=== PATIENT | male | born 1945 ===

== ENCOUNTER 2017-05-02 13:20 | Emergency (ER) | payer SELFPAY ==
[2017-05-02] MEDS ORDERED: Absorbable Gelatin Sponge Size 12-7 TOP STA (13:56)
[2017-05-02 13:57] VITALS: BP 167/76; PULSE 99; RESP 18; TEMP 97.8; O2SAT 99
[2017-05-02] MEDS ORDERED: Absorbable Gelatin Sponge Size 12-7 ONE (14:00)
--- NOTE | 2017-05-02 14:28 | C.PDOC ---
History Of Present Illness 71 y/o male presents to ED with persistent bleeding from right thumb. Pt was traveling from [facility] yesterday and took xeralto at 1300. Today he accidentally cut his right thumb on edge of a metal bed frame and has had persistent bleeding and pulsating pain. Tetanus not UTD. Denies chest pain, SOB, dizziness or any other complaints. Time Seen by Provider: 05/02/17 13:48 Chief Complaint (Nursing): Abnormal Skin Integrity History Per: Patient History/Exam Limitations: no limitations Onset/Duration Of Symptoms: Hrs Current Symptoms Are (Timing): Still Present Quality Of Symptoms: Painful Severity: Mild Recent travel outside of the [place]: No Past Medical History Reviewed: Historical Data, Nursing Documentation, Vital Signs Vital Signs: Last Vital Signs Temp 97.8 F 05/02/17 13:20 Pulse 99 H 05/02/17 13:20 Resp 18 05/02/17 13:20 BP 167/76 H 05/02/17 13:20 Pulse Ox 99 05/02/17 15:01 - Medical History PMH: HTN Surgical History: No Surg Hx Family History: States: Unknown Family Hx - Social History Hx Alcohol Use: No Hx Substance Use: No - Immunization History Hx Tetanus Toxoid Vaccination: No Hx Influenza Vaccination: No Hx Pneumococcal Vaccination: No Review Of Systems Cardiovascular: Negative for: Chest Pain Respiratory: Negative for: Shortness of Breath Skin: Positive for: Other (right thumb laceration) Neurological: Negative for: Dizziness Physical Exam - Physical Exam Appears: Non-toxic, No Acute Distress Skin: Warm, Dry, No Rash, Other (0.5 cm skin avulsion to right thumb finger tip with active bleeding) Head: Atraumatic, Normacephalic Eye(s): bilateral: Normal Inspection, EOMI Neck: Normal ROM Chest: Symmetrical Cardiovascular: Rhythm Regular Respiratory: Normal Breath Sounds, No Rales, No Rhonchi, No Wheezing Extremity: Normal ROM, No Tenderness, Capillary Refill (< 2 seconds), No Swelling, Other (skin avulsion right thumb) Pulses: Right Radial: Normal Neurological/Psych: Oriented x3, Normal Speech, Normal Motor, Normal Sensation Gait: Steady ED Course And Treatment O2 Sat by Pulse Oximetry: 99 (room air) Pulse Ox Interpretation: Normal Medical Decision Making Medical Decision Making: Irrigated wound, applied gel foam with good hemostasis. Tetanus vaccine given. Monitored patient for further bleeding, bleeding controlled. Discharged patient home. Disposition Counseled Patient/Family Regarding: Diagnosis, Need For Followup - Disposition Referrals: [facility] [Outside] Disposition: HOME/ ROUTINE Disposition Time: 14:26 Condition: STABLE Additional Instructions: Usted downs sido tratado para la piel avulsion del dedo La vacuna contra el ttanos fue chun hoy Gelfoam se aplic a la herida para evitar el sangrado, abdulaziz se caer en 3-5 d as. Por favor no despegues Cambiar el vendaje diariamente Instructions: Skin Avulsion (ED) Forms: [id number] (Filipino) Print Language: SLOVENIAN - POA Present On Arrival: None - Clinical Impression Clinical Impression: Fingertip avulsion - PA / CONFERENCE SERVICE COORDINATOR / Resident Statement MD/DO has reviewed & agrees with the documentation as recorded. - Scribe Statement The provider has reviewed the documentation as recorded by the Scribsukh Baker All medical record entries made by the Scribe were at my direction and personally dictated by me. I have reviewed the chart and agree that the record accurately reflects my personal performance of the history, physical exam, medical decision making, and the department course for this patient. I have also personally directed, reviewed, and agree with the discharge instructions and disposition.
== END 2017-05-02 14:37 | disposition home or self-care (01) ==
LOC: C.ER 13:20
DX: S61.101A Unspecified open wound of right thumb with damage to nail, initial encounter (principal); W45.8XXA Other foreign body or object entering through skin, initial encounter; Z23 Encounter for immunization